=== PATIENT | male | born 1940 | race Caucasian/White ===

== ENCOUNTER 2019-04-29 13:54 | Emergency (ER) | payer MEDICARE, OTHER ==
--- NOTE | 2019-04-29 15:51 | RAD REPORT ---
EXAM DESCRIPTION: RAD - Chest Single View - 04/29/2019 3:13 pm CLINICAL HISTORY: Weakness, hypertension, shortness of breath COMPARISON: November 2016 TECHNIQUE: AP portable chest image was obtained 1509 hours . FINDINGS: Inspiratory effort is shallow. No focal lung parenchymal process. Lung markings are not marroquin bstantially different. Heart and vasculature are normal. No measurable pleural effusion and no pneumo thorax. No acute bony abnormality seen. No acute aortic findings suspected. IMPRESSION: No acute cardiopulmonary process.
[2019-04-29] MEDS ORDERED: NA CHLORIDE 0.9% 250 ML ONE ×2 (16:02→17:07)
[2019-04-29 16:10] LABS: Protime INR 1.03
[2019-04-29 16:10] LABS: Absolute Lymphocytes (CBC) 1.4 K/uL (0.7-4.9); Basophils % 0.7 % (0-1.3); Hematocrit 47.6 % (39.6-49.0); MPV 7.9 fL (7.6-11.3); RBC Red Blood Cell Count 5.21 M/uL (4.33-5.43)
[2019-04-29 16:39] LABS: ALT/SGPT 42 U/L (12-78); AST/SGOT 27 U/L (15-37); Alkaline Phosphatase 75 U/L (45-117); BUN Blood Urea Nitrogen 14 mg/dL (7-18); Bicarbonate 26 mmol/L (21-32); Bilirubin Direct 0.2 mg/dL (0-0.2); Bilirubin Total 0.7 mg/dL (0.2-1.0); Glucose Level 95 mg/dL (74-106); Magnesium 2.4 mg/dL (1.8-2.4); NT PRO-BNP 224 pg/mL (<450); Potassium 4.5 mmol/L (3.5-5.1); Sodium Level 139 mmol/L (136-145)
[2019-04-29 18:47] LABS: Urine Blood NEGATIVE (NEG); Urine Glucose NEGATIVE (NEG); Urine Protein NEGATIVE (NEG)
[2019-04-29 19:16] LABS: Urine Bacteria <20 /HPF (NONE SEEN); Urine Culture Reflex Order NOT NEEDED; Urine RBC NONE SEEN /HPF (NONE SEEN)
--- NOTE | 2019-04-29 19:23 | RAD REPORT ---
EXAM DESCRIPTION: CT - Head Brain Wo Cont - 04/29/2019 7:05 pm CLINICAL HISTORY: Weakness, hypertension COMPARISON: CT head November 2016 TECHNIQUE: Axial 5 mm thick images of the head were obtained without IV contrast. All CT scans are performed using dose optimization technique as appropriate and may include automated exposure control or mA/KV adjustment according to patient size. FINDINGS: No intracranial hemorrhage, mass, edema or shift of mid-line structures. No acute cortical based infarction. No cortical edema or sulcal effacement. Patient has advanced atrophy and advanced chronic ischemic change ventricles are in proportion. Intracranial findings are similar to comparison . Arterial tree calcifications are present. Mastoid air cells and visualized portions of the paranasal sinuses are clear. No acute bony findings. IMPRESSION: Negative non-contrast CT head examination for acute finding. Advanced atrophy and chronic ischemic change similar to 2017.
[2019-04-29 19:30] LABS: Troponin (Emerg Dept Use Only) < 0.02 ng/mL (0.0-0.045)
--- NOTE | 2019-04-29 20:54 | ER ---
Nurse's Notes [facility] Name: Dewayne Zapata Age: 78 yrs Sex: Male : 1940 Arrival Date: 04/29/2019 Time: 14:06 Bed 28 Private MD: Diagnosis: Weakness-general Presentation: 04/29 14:07 Presenting complaint: EMS states: [facility] and was having some weakness tr5 and difficulty remaining in na standing position. Pt was having some high blood pressure with the systolic in the 180's. BG was 111. Transition of care: patient was not received from another setting of care. Onset of symptoms was April 29, 2019. Risk Assessment: Do you want to hurt yourself or someone else? Patient reports no desire to harm self or others. Initial Sepsis Screen: Does the patient meet any 2 criteria? HR > 90 bpm. No. Patient's initial sepsis screen is negative. Does the patient have a suspected source of infection? No. Patient's initial sepsis screen is negative. Care prior to arrival: None. 14:07 Method Of Arrival: EMS: [facility] tr5 14:07 Acuity: LIN 3 tr5 14:12 Care prior to arrival: IV initiated. 20 GA, in the right antecubital area, Glucose tr5 check: 111. Historical: - Allergies: 14:11 No Known Allergies; tr5 - Home Meds: 14:11 atorvastatin 80 mg Oral tab [Active]; clopidogrel 75 mg Oral tab [Active]; losartan 50 tr5 mg oral tab [Active]; metoprolol tartrate 50 mg Oral tab 1 tab 2 times per day [Active]; - PMHx: 14:11 Hypertension; Myocardial infarction; Hyperlipidemia; tr5 - PSHx: 14:12 cardiac stents; tr5 - Immunization history:: Adult Immunizations up to date. - Social history:: Smoking status: Patient uses tobacco products, chewing tobacco. - Ebola Screening: : No symptoms or risks identified at this time. Screenin:16 Abuse screen: Denies threats or abuse. Nutritional screening: No deficits noted. tr5 Tuberculosis screening: No symptoms or risk factors identified. Fall Risk None identified. Assessment: 14:16 General: Appears uncomfortable, Behavior is calm, cooperative, appropriate for age, tr5 Smells of. Pain: Denies pain. Neuro: Level of Consciousness is awake, alert, Oriented to person, place, time, [employer] are equal bilaterally Moves all extremities. Cardiovascular: Heart tones present Capillary refill < 3 seconds Pulses are all present. Edema pitting to left ankle, left foot, right ankle and right foot. Respiratory: Airway is patent Respiratory effort is even, unlabored, Respiratory pattern is regular, symmetrical, Breath sounds are clear bilaterally. GI: No signs and/or symptoms were reported involving the gastrointestinal system. : No signs and/or symptoms were reported regarding the genitourinary system. EENT: No signs and/or symptoms were reported regarding the EENT system. Derm: Skin is intact, Skin is dry, Skin is normal, Skin temperature is warm. Musculoskeletal: Capillary refill < 3 seconds, Range of motion: intact in all extremities. 15:03 Reassessment: No changes from previously documented assessment. Patient and/or family tr5 updated on plan of care and expected duration. Pain level reassessed. Patient is alert, oriented x 3, equal unlabored respirations, skin warm/dry/pink. 16:14 Reassessment: No changes from previously documented assessment. Patient and/or family tr5 updated on plan of care and expected duration. Pain level reassessed. Patient is alert, oriented x 3, equal unlabored respirations, skin warm/dry/pink. 17:00 Reassessment: Patient appears in no apparent distress at this time. Patient and/or tr5 family updated on plan of care and expected duration. Pain level reassessed. Patient is alert, oriented x 3, equal unlabored respirations, skin warm/dry/pink. Pt's family is at bedside. Pt is resting in bed watching tv. 18:00 Reassessment: Patient appears in no apparent distress at this time. No changes from tr5 previously documented assessment. Patient and/or family updated on plan of care and expected duration. Pain level reassessed. Patient is alert, oriented x 3, equal unlabored respirations, skin warm/dry/pink. 19:00 Reassessment: No changes from previously documented assessment. Patient and/or family tr5 updated on plan of care and expected duration. Pain level reassessed. Patient is alert, oriented x 3, equal unlabored respirations, skin warm/dry/pink. Vital Signs: 14:12 BP 172 / 95; Pulse 103; Resp 17; Temp 97.7(O); Pulse Ox 96% on R/A; Weight 108.86 kg; tr5 Height 5 ft. 7 in. (170.18 cm); Pain 0/10; 14:46 BP 168 / 63; Pulse 107; Resp 16; Pulse Ox 98% on R/A; tr5 16:00 BP 169 / 82; Pulse 105; Resp 16; Pulse Ox 99% on R/A; tr5 17:00 BP 150 / 78; Pulse 99; Resp 22; Pulse Ox 96% on R/A; tr5 18:00 BP 148 / 72; Pulse 97; Resp 16; Pulse Ox 95% on R/A; tr5 19:00 BP 149 / 78; Pulse 99; Pulse Ox 97% on R/A; tr5 20:00 BP 150 / 80; Pulse 99; Resp 16; Temp 97.8(O); Pulse Ox 100% ; tr5 14:12 Body Mass Index 37.59 (108.86 kg, 170.18 cm) tr5 ED Course: 14:06 Patient arrived in ED. ss 14:06 Pranav Nagy, JANE is Primary Nurse. tr5 14:08 EKG done, by electrical cad technician. reviewed by James Geronimo MD. sm3 14:09 Triage completed. tr5 14:12 Arm band placed on. EKG completed in triage. Results shown to MD. EKG completed in tr5 triage. Results shown to MD. 14:16 Inserted saline lock: 20 gauge in right antecubital area, using aseptic technique. tr5 14:16 Bed in low position. Call light in reach. Side rails up X 1. awake overnight monitor on. Pulse tr5 ox on. NIBP on. 14:17 Garcia Rios PA is PHCP. cp 14:17 James Geronimo MD is Attending Physician. cp 15:30 First set of blood cultures drawn. tr5 16:17 Second set of blood cultures drawn by lab staff. tr5 18:20 Urine collected: clean catch specimen, clear. lt1 20:25 No provider procedures requiring assistance completed. IV discontinued. tr5 Administered Medications: 16:07 Drug: NS 0.9% 250 ml Route: IV; Rate: bolus; Site: right antecubital; tr5 18:13 Follow up: Urine output 250 ml; IV Status: Completed infusion; IV Intake: 250ml tr5 17:08 Drug: NS 0.9% 250 ml Route: IV; Rate: bolus; Site: right antecubital; tr5 18:12 Follow up: IV Status: Completed infusion; IV Intake: 250ml tr5 Intake: 18:12 IV: 250ml; Total: 250ml. tr5 18:13 IV: 250ml; Total: 500ml. tr5 Output: 18:13 Urine: 250ml; Total: 250ml. tr5 Outcome: 19:36 Discharge ordered by MD. cp 20:25 Discharged to home tr5 20:25 Condition: stable 20:25 Discharge instructions given to patient, Instructed on discharge instructions, follow up and referral plans. Demonstrated understanding of instructions, follow-up care. 20:26 Patient left the ED. tr5 Addendum: 05/04/2019 10:42 Addendum: Culture Results: Positive blood culture. Diana Hay NP recommends s s Bactrim DS 1 tablet PO BID x 7 days.. Bacteria is resistant to, has intermediate sensitivity, or is not tested against prescribed antibiotics. Report given to [facility] for further evaluation and then to iron pellet tester for follow up with patient. Patient was not prescribed antibiotics at discharge. Report given to [facility] for further evaluation and then to iron pellet tester for follow up with patient. Phone call Attempt #1 Patient did not answer, left Certified letter sent to listed address for patient. Signatures: Helene Moya, RN RN Garcia Childress PA PA cp Montes, Shakira sm3 Concetta Urbina lt1 Pranav Nagy RN RN tr5 Corrections: (The following items were deleted from the chart) 04/29 16:17 16:17 Second set of blood cultures drawn tr5 tr5 17:01 17:00 Reassessment: Patient appears in no apparent distress at this time. Patient tr5 and/or family updated on plan of care and expected duration. Pain level reassessed. Patient is alert, oriented x 3, equal unlabored respirations, skin warm/dry/pink. tr5
--- NOTE | 2019-04-29 20:55 | EDPHYS ---
Physician Documentation [facility] Name: Dewayne Zapata Age: 78 yrs Sex: Male : 1940 Arrival Date: 04/29/2019 Time: 14:06 Bed 28 Private MD: ED Physician James Geronimo HPI: 04/29 14:40 This 78 yrs old Male presents to ER via EMS with complaints of General cp Weakness. 14:40 The patient's problem is reported as weakness, that is generalized. cp 14:40 Onset: The symptoms/episode began/occurred this morning. Duration: The episode is cp continuous. Context: occurred at home, patient reports falling after getting out of bed. Associated signs and symptoms: Pertinent negatives: abdominal pain, chest pain, headache, lightheadedness, numbness, palpitations, vertigo, vomiting. Patient's baseline: Neuro: alert and fully oriented, Motor: no deficits, Ambulation: walks without assistance, Speech: normal. [place] [facility] for similar complaints. Patient was referred to [facility] ED for evaluation. Historical: - Allergies: 14:11 No Known Allergies; tr5 - Home Meds: 14:11 atorvastatin 80 mg Oral tab [Active]; clopidogrel 75 mg Oral tab [Active]; losartan 50 tr5 mg oral tab [Active]; metoprolol tartrate 50 mg Oral tab 1 tab 2 times per day [Active]; - PMHx: 14:11 Hypertension; Myocardial infarction; Hyperlipidemia; tr5 - PSHx: 14:12 cardiac stents; tr5 - Immunization history:: Adult Immunizations up to date. - Social history:: Smoking status: Patient uses tobacco products, chewing tobacco. - Ebola Screening: : No symptoms or risks identified at this time. ROS: 14:45 Constitutional: Negative for body aches, chills, fever, poor PO intake. cp 14:45 Eyes: Negative for injury, pain, redness, and discharge. cp 14:45 ENT: Negative for drainage from ear(s), ear pain, sore throat, difficulty swallowing, difficulty handling secretions. 14:45 Cardiovascular: Negative for chest pain, edema, palpitations. 14:45 Respiratory: Negative for cough, shortness of breath, wheezing. 14:45 Abdomen/GI: Negative for abdominal pain, nausea, vomiting, and diarrhea, constipation, black/tarry stool, rectal bleeding. 14:45 Back: Negative for pain at rest, pain with movement. 14:45 : Negative for urinary symptoms. 14:45 Skin: Negative for cellulitis, rash. 14:45 Neuro: Positive for general weakness, Negative for altered mental status, dizziness, headache, loss of consciousness, syncope. 14:45 All other systems are negative. Exam: 14:55 Constitutional: The patient appears in no acute distress, alert, awake, cp non-diaphoretic, non-toxic, well developed, well nourished. 14:55 Head/Face: Normocephalic, atraumatic. Eyes: Pupils equal round and reactive to light, cp extra-ocular motions intact. Lids and lashes normal. Conjunctiva and sclera are non-icteric and not injected. Cornea within normal limits. Periorbital areas with no swelling, redness, or edema. ENT: Nares patent. No nasal discharge, no septal abnormalities noted. Tympanic membranes are normal and external auditory canals are clear. Oropharynx with no redness, swelling, or masses, exudates, or evidence of obstruction, uvula midline. Mucous membranes moist. Chest/axilla: Normal chest wall appearance and motion. Nontender with no deformity. No lesions are appreciated. 14:55 Cardiovascular: Rate: tachycardic, Rhythm: regular, Heart sounds: murmur, not appreciated, Edema: is not appreciated, JVD: is not appreciated. 14:55 Respiratory: the patient does not display signs of respiratory distress, Respirations: normal, no use of accessory muscles, no retractions, no splinting, no tachypnea, labored breathing, is not present, Breath sounds: are clear throughout, no decreased breath sounds, no stridor, no wheezing. 14:55 Abdomen/GI: Inspection: abdomen appears normal, Bowel sounds: active, all quadrants, Palpation: abdomen is soft and non-tender, in all quadrants, rebound tenderness, is not appreciated, voluntary guarding, is not appreciated, involuntary guarding, is not appreciated. 14:55 Back: pain, is absent, ROM is normal. 14:55 Musculoskeletal/extremity: Exam is negative for calf tenderness, decreased range of motion, injury. 14:55 Skin: cellulitis, is not appreciated, no rash present. 14:55 Neuro: Orientation: to person, place \T\ time. Mentation: is normal, Cerebellar function: Romberg testing is negative, normal finger to nose testing, Motor: moves all fours, general weakness w/o focal deficits, Sensation: is normal. 19:20 Radiologist reports: no acute findings cp Vital Signs: 14:12 BP 172 / 95; Pulse 103; Resp 17; Temp 97.7(O); Pulse Ox 96% on R/A; Weight 108.86 kg; tr5 Height 5 ft. 7 in. (170.18 cm); Pain 0/10; 14:46 BP 168 / 63; Pulse 107; Resp 16; Pulse Ox 98% on R/A; tr5 16:00 BP 169 / 82; Pulse 105; Resp 16; Pulse Ox 99% on R/A; tr5 17:00 BP 150 / 78; Pulse 99; Resp 22; Pulse Ox 96% on R/A; tr5 18:00 BP 148 / 72; Pulse 97; Resp 16; Pulse Ox 95% on R/A; tr5 19:00 BP 149 / 78; Pulse 99; Pulse Ox 97% on R/A; tr5 20:00 BP 150 / 80; Pulse 99; Resp 16; Temp 97.8(O); Pulse Ox 100% ; tr5 14:12 Body Mass Index 37.59 (108.86 kg, 170.18 cm) tr5 MDM: 14:25 Patient medically screened. cp 15:00 Differential diagnosis: CVA, TIA, metabolic disorder, drug effects, dehydration. cp 19:35 Data reviewed: vital signs, nurses notes, lab test result(s), radiologic studies, CT cp scan, plain films. 19:35 Test interpretation: by ED physician or midlevel provider: plain radiologic studies. cp Counseling: I had a detailed discussion with the patient and/or guardian regarding: the historical points, exam findings, and any diagnostic results supporting the discharge/admit diagnosis, lab results, radiology results, to return to the emergency department if symptoms worsen or persist or if there are any questions or concerns that arise at home. Response to treatment: the patient's symptoms have markedly improved after treatment, VSS. Patient reports he is feeling better after IV fluids. Will discharge to home for continued monitoring. 04/29 14:37 Order name: Basic Metabolic Panel cp 04/29 14:37 Order name: CBC with Diff cp 04/29 14:37 Order name: LFT's 04/29 14:37 Order name: Magnesium cp 04/29 14:37 Order name: NT PRO-BNP 04/29 14:37 Order name: PT-INR 04/29 14:37 Order name: Troponin (emerg Dept Use Only) 04/29 14:37 Order name: Urine Microscopic Only 04/29 14:37 Order name: Procalcitonin 04/29 14:37 Order name: Lactate 04/29 14:37 Order name: Blood Culture Adult (2) 04/29 18:25 Order name: Urine Dipstick--Ancillary (enter results) ms 04/29 18:37 Order name: CBC with Automated Diff; Complete Time: 18:48 EDMS 04/29 18:49 Interpretation: Normal except: MCV 91.3; LYM% 14.0; MN% 12.7. 04/29 18:37 Order name: Protime (+INR); Complete Time: 18:48 EDMS 04/29 14:37 Order name: XRAY Chest (1 view) 04/29 14:37 Order name: Cardiac monitoring; Complete Time: 14:44 04/29 14:37 Order name: EKG - Nurse/Tech; Complete Time: 14:44 04/29 18:37 Order name: Lactate; Complete Time: 18:48 EDMS 04/29 18:37 Order name: Basic Metabolic Panel; Complete Time: 20:10 EDMS 04/29 18:58 Interpretation: Normal except: GFR 54. 04/29 18:37 Order name: Liver (Hepatic) Function; Complete Time: 20:10 EDMS 04/29 18:37 Order name: NT PRO-BNP; Complete Time: 20:10 EDMS 04/29 18:37 Order name: Magnesium; Complete Time: 20:10 EDMS 04/29 18:37 Order name: Procalcitonin; Complete Time: 18:48 EDMS 04/29 18:50 Order name: Urine Dipstick-Ancillary; Complete Time: 18:58 EDMS 04/29 19:14 Order name: Blood Culture EDME 04/29 19:18 Order name: Urine Microscopic Only; Complete Time: 19:20 EDMS 04/29 19:20 Interpretation: Normal except: SQEPI 5-10. cp 04/29 19:40 Order name: Troponin (Emerg Dept Use Only); Complete Time: 20:10 EDME 04/29 14:37 Order name: IV Saline Lock; Complete Time: 14:44 04/29 14:37 Order name: Labs collected and sent; Complete Time: 14:44 04/29 14:37 Order name: O2 Per Protocol; Complete Time: 14:44 cp 04/29 14:37 Order name: O2 Sat Monitoring; Complete Time: 14:44 04/29 14:37 Order name: Urine Dipstick-Ancillary (obtain specimen); Complete Time: 18:20 cp Administered Medications: 16:07 Drug: NS 0.9% 250 ml Route: IV; Rate: bolus; Site: right antecubital; tr5 18:13 Follow up: Urine output 250 ml; IV Status: Completed infusion; IV Intake: 250ml tr5 17:08 Drug: NS 0.9% 250 ml Route: IV; Rate: bolus; Site: right antecubital; tr5 18:12 Follow up: IV Status: Completed infusion; IV Intake: 250ml tr5 Disposition: 04/29/19 19:36 Discharged to Home. Impression: Weakness - general. - Condition is Stable. - Discharge Instructions: Dehydration, Adult, Weakness. - Medication Reconciliation Form, Thank You Letter, Antibiotic Education, Prescription Opioid Use form. - Follow up: Private Physician; When: 1 - 2 days; Reason: Recheck today's complaints. - Problem is new. - Symptoms have improved. Addendum: 05/02/2019 19:22 Co-signature as Attending Physician, James Geronimo MD I agree with the assessment and k plan of care. Signatures: Dispatcher [employer] [facility] James Geronimo MD MD [facility] Garcia Rios PA PA cp Pranav Nagy RN RN tr5 Corrections: (The following items were deleted from the chart) 04/29 18:12 17:37 Singh ordered. cp tr5 18:49 18:49 Normal except: MCV 91.3. cp cp 20:26 19:36 04/29/2019 19:36 Discharged to Home. Impression: Weakness - general. Condition is tr5 Stable. Forms are Medication Reconciliation Form, Thank You Letter, Antibiotic Education, Prescription Opioid Use. Follow up: Private Physician; When: 1 - 2 days; Reason: Recheck today's complaints. Problem is new. Symptoms have improved. cp
[2019-04-29 23:16] VITALS: BP 150/80; TEMP 97.8; O2SAT 100
--- NOTE | 2019-05-02 08:15 | EKG ---
Test Date: 2019-04-29 Test Time: 14:05:06 Manager Business Planning: [employer] MEASUREMENT RESULTS: Intervals: Rate: 105 WV: 138 QRSD: 88 QT: 322 QTc: 425 [place]: P: 64 WV: 138 QRS: 17 T: 10 INTERPRETIVE STATEMENTS: Sinus tachycardia with occasional premature ventricular complexes Otherwise normal ECG Compared to ECG 12/18/2016 07:07:34 Ventricular premature complex(es) now present Sinus rhythm no longer present Prolonged QT interval no longer present Electronically Signed On 05-02-19 08:08:20 CDT by Calixto Morel
== END 2019-04-29 20:26 | disposition home or self-care (01) ==
LOC: ER 13:54
DX: R53.1 Weakness (principal); I10 Essential (primary) hypertension; I25.2 Old myocardial infarction; E78.5 Hyperlipidemia, unspecified; Z95.5 Presence of coronary angioplasty implant and graft
CPT/HCPCS: 36415; 70450; 71045; 80048; 80076; 81003; 81015; 83605; 83735; 83880; 84145; 84484; 85025; 85610; 87040; 87077; 87186; 87205; 93005; 96365; 96366; 99284